=== PATIENT | male | born 1945 | race Caucasian/White ===

== ENCOUNTER 2024-06-30 08:58 | Day surgery (SDC) | payer MEDICARE, BC ==
[~2024-06-30 08:58] MED LIST: FENTANYL PF 100MCG/2ML AMPUL ONE; MIDAZOLAM HCL 2 MG/2ML VIAL ONE
[2024-06-30] MEDS ORDERED: ROPIVACAINE HCL 0.5% 5 MG/ML 30ML VIAL ONE (11:27)
[2024-06-30] MEDS ORDERED: BUPIVACAINE 0.5 % PF 150 MG/30 ML VIAL ONE (12:10)
[2024-06-30] MEDS ORDERED: LIDOCAINE 1%-EPI 1:100,000 20 ML VIAL ONE (12:10)
[2024-06-30] MEDS ORDERED: BUPIVACAINE 0.25% 75 MG/30 ML VIAL ONE (12:10)
[2024-06-30] MEDS ORDERED: HYDROMORPHONE 1 MG/1 ML DISP.SYRIN IV PRN (14:00)
== END 2024-06-30 15:20 | disposition home or self-care (01) ==
LOC: DS 08:58
PROVIDERS: ATTEND Surgery
DX: K40.31 Unilateral inguinal hernia, with obstruction, without gangrene, recurrent (principal); K66.0 Peritoneal adhesions (postprocedural) (postinfection); E11.9 Type 2 diabetes mellitus without complications; E78.5 Hyperlipidemia, unspecified; M54.16 Radiculopathy, lumbar region; G47.00 Insomnia, unspecified; M10.9 Gout, unspecified; Z88.8 Allergy status to other drugs, medicaments and biological substances; Z79.899 Other long term (current) drug therapy; Z98.52 Vasectomy status; Z98.1 Arthrodesis status; Z98.42 Cataract extraction status, left eye; Z98.41 Cataract extraction status, right eye; Z98.890 Other specified postprocedural states; Z83.438 Family history of other disorder of lipoprotein metabolism and other lipidemia; Z82.49 Family history of ischemic heart disease and other diseases of the circulatory system
CPT/HCPCS: 49521; 64425; 76942; 88302; 88304; C1781; J0690; J1885; J2250; J2405; J2704; J2795; J3010; J3490; J7030; J7050